=== PATIENT | female | born 1955 | race Two or more races ===

== ENCOUNTER 2020-09-09 16:08 | Inpatient (IN) | payer MEDICARE, OTHER ==
[~2020-09-09] VITALS: Ht 157.5 cm; Wt 59.4 kg
[2020-09-09 16:00] VITALS: BP 153/84
--- NOTE | 2020-09-09 16:30 | NUR ---
PATIENT IS A 64 YEAR OLD FEMALE, BROUGHT IN TO THE HOSPITAL BY AMBULANCE FROM [facility] , ADMITTED ON A 5150 HOLD FOR DANGER TO SELF. UPON FACE TO FACE ASSESSMENT, PATIENT DENIES SI/HI, STATES SHE HAS NO PLAN TO HURT OTHERS OR HERSELF, BECAUSE "THAT ONLY CAUSES PAIN FOR OTHER PEOPLE". PATIENT IS ANXIOUS, RESTLESS, AND FEARFUL DURING ASSESSMENT. PATIENT DURING INTERVIEW LYING DOWN IN BED WITH CONTROLLED MOVEMENT. PATIENT GOES ON TANGENTS DURING INTERVIEW BUT IS ABLE TO BE REDIRECTED AND REFOCUS ON SUBJECT. SPEECH IS NORMAL PACE, WITHOUT PRESSURE. PATIENT STATES SHE HAS HX OF ANXIETY, SEIZURES, DEPRESSION, BIPOLAR, AND SCHIZOPHRENIA. PATIENT STATES SHE DRINKS ON AVERAGE 1 BOTTLE VODKA A DAY AND HALF A PACK OF CIGARETTES A DAY. PT STATES HER LAST DRINK WAS IN JUNE 2020, LAST SMOKE IN JULY 2020. PATIENT APPEARS DISHEVELED. Q15 SAFETY CHECKS IMPLEMENTED. WILL CONTINUE TO MONITOR
[2020-09-09] MEDS ORDERED: LORA10TA7 PO (16:52)
[2020-09-09] MEDS ORDERED: NALT50TA PO (16:52)
[2020-09-09] MEDS ORDERED: ASPI-1169 PO (16:52)
[2020-09-09] MEDS ORDERED: VARE1TAB PO (16:52)
[2020-09-09] MEDS ORDERED: LISI10TA29 PO (16:52)
[2020-09-09] MEDS ORDERED: LEVO25TA7 PO (16:52)
[2020-09-09 17:00] VITALS: BP 153/84
[2020-09-09] MEDS ORDERED: MAG HYDROX/AL HYDROX/SIMETH 30 ML UDC PO PRN (17:00)
[2020-09-09] MEDS ORDERED: BLOOD SUGAR DIAGNOSTIC 1 EACH STRIP IN ONE (17:00)
[2020-09-09] MEDS ORDERED: MAGNESIUM HYDROXIDE 30 ML UDC PO PRN (17:00)
[2020-09-09] MEDS: LORAZEPAM 1 MG TABLET PO PRN (17:12)
--- NOTE | 2020-09-09 17:14 | NUR ---
PATIENT ANXIOUS AND EXPRESSES WISHES TO LEAVE IMMEDIATELY, ATIVAN PO GIVEN DIRECTED, WILL CONTINUE TO MONITOR
[2020-09-09 20:46] VITALS: BP 145/78
[2020-09-10] MEDS: ACETAMINOPHEN 325 MG TABLET PO PRN (06:06)
[2020-09-10 06:30] LABS: CALCIUM, SERUM 9.4 mg/dL (8.5-10.1); CREATININE 0.9 mg/dL (0.6-1.3); TOTAL PROTEIN, SERUM 9.1 g/dL (6.4-8.2)
[2020-09-10 06:41] LABS: CHOLESTEROL 168 mg/dL (<200); HDL CHOLESTEROL 58 mg/dL (40-60); LDL 97 mg/dL (0-99); TRIGLYCERIDES 70 mg/dL (30-150)
[2020-09-10 08:00] VITALS: BP 134/96
[2020-09-10] MEDS: LISINOPRIL (10MG) 10 MG TABLET PO SCH (08:36)
[2020-09-10] MEDS: NICOTINE PATCH (21MG) 21 MG PATCH.TD24 TD SCH (08:36)
[2020-09-10] MEDS: LEVOTHYROXINE SODIUM 50 MCG TABLET PO SCH (08:37)
[2020-09-10] MEDS: ASPIRIN 81 MG TAB.CHEW PO SCH (08:37)
[2020-09-10] MEDS ORDERED: LORATADINE 10 MG TABLET PO PRN (09:00)
--- NOTE | 2020-09-10 09:15 | NUR ---
RN NOTES BP RE-EVALUATED POST LISINOPRIL ADMINISTRATION. BP FROM 160/98 TO 134/96. WILL CONT TO MONITOR CARE
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
[2020-09-10 16:00] VITALS: BP 132/73
[2020-09-10] MEDS: DIVALPROEX SODIUM 250 MG TABLET.DR PO SCH (17:00)
--- NOTE | 2020-09-10 17:30 | NUR ---
RN NOTES NEW MEDICATION: DEPAKOTE 250 MG TAB DUE AT 1700 REFUSED. PT STATING THAT "DOCUMENT WHATEVER YOU WANT, YOU ARE PREVENTING ME TO USE THE PHONE CAUSE I MIGHT STEAL IT. YOU DON'T WANT ME TO TALK TO MY DAUGHTER CAUSE SHE WILL TELL ME THAT I SHOULD TAKE A SHOWER. YOU WANTED TO KEEP ME HERE BECAUSE I STINK", PT STARTED YELLING AND SHOUTING THIS STATEMENT. THOUGH RISK AND BENEFITS EXPLAINED, PT CONTINUE TO REFUSE AND ESCALATING BEHAVIOR. SAFETY ENVIRONMENT PROVIDED. CONT TO MONITOR CARE
[2020-09-10 19:52] VITALS: BP 122/76
[2020-09-10] MEDS: QUETIAPINE FUMARATE 100 MG TABLET PO SCH (21:00)
--- NOTE | 2020-09-10 23:46 | NUR ---
RN NOTE PATEINT REFUSED MEDICATION AND STATED " I DO NO WANT IT. THANK YOU." PATIENT IN ROOM IN STABLE CONDITION. VITALS SIGNS STABLE AND PATIENT ASLEEP AT THIS TIME WILL CONTINUE TO MONITOR AND FOLLOW CARE PLAN ACCORDINGLY.
[2020-09-11 08:00] VITALS: BP 147/79
[2020-09-11] MEDS: LISINOPRIL (10MG) 10 MG TABLET PO SCH ×2 (08:40→08:47)
[2020-09-11] MEDS: LEVOTHYROXINE SODIUM 50 MCG TABLET PO SCH ×2 (08:41→08:47)
[2020-09-11] MEDS: ASPIRIN 81 MG TAB.CHEW PO SCH ×2 (08:41→08:47)
[2020-09-11] MEDS: ACETAMINOPHEN 325 MG TABLET PO PRN (08:41)
[2020-09-11] MEDS: NICOTINE PATCH (21MG) 21 MG PATCH.TD24 TD SCH ×2 (08:41→08:48)
[2020-09-11] MEDS: DIVALPROEX SODIUM 250 MG TABLET.DR PO SCH ×3 (08:41→16:11)
--- NOTE | 2020-09-11 09:06 | NUR ---
Patient requested tylenol but refused once attempted to administer. Nurse educated on benefits of medication. MD visited, requesting she take medication, responded "yes" but refused once nurse returned dumping it in pitcher of juice. MD made aware and revisited with explanation of consequence for not taking medication. Pt states "ok, I'm not taking."
--- NOTE | 2020-09-11 13:19 | NUR ---
Nurse spoke with son during lunch due to her refusing to eat and wanting "vitamins" and informed him she refused morning medication with multiple attempts to give. Will give him a call next medication time if she refuses.
[2020-09-11 16:00] VITALS: BP 133/79
--- NOTE | 2020-09-11 17:33 | NUR ---
Rn Closing Note: Patient accepted 1700 depakote without difficulty and consumed dinner. No aggressive events this shift. Most of day spent in room or ad-yuniel chahal, hyperverbal continues.
[2020-09-11 19:58] VITALS: BP 128/61
[2020-09-11] MEDS: QUETIAPINE FUMARATE 100 MG TABLET PO SCH ×2 (21:35→22:52)
[2020-09-11] MEDS ORDERED: QUETIAPINE FUMARATE 25 MG TABLET ONE (22:48)
--- NOTE | 2020-09-11 22:52 | NUR ---
GPS-RN NOTES: 2134 - PULLED OUT SEROQUEL 150MG PO IN THE OMNICELL SCHEDULED. PATIENT TOOK ONLY SEROQUEL 50MG. EDUCATED PATIENT REGARDING MEDICATION COMPLIANCE TO TAKE THE REMAINING DOSE OF 100MG PO BUT PATIENT STRONGLY REFUSED. WASTED SEROQUEL 100MG PO IN MEDICATION DISPOSAL. 2251 - CALLED PATIENT SON'S VANESA INFORMED HIM THAT PATIENT TOOK ONLY SEROQUEL 50MG PO INSTEAD OF SEROQUEL 150MG PO ORDERED. PATIENT'S SON CONVINCED PT AND PATIENT AGREED TO TAKE MED. CHARGE NURSE DWIGHT PULLED OUT SEROQUEL 25MG (4TABS) SINCE SEROQUEL 100MG IS UNAVAILABLE STOCK. ADMINISTERED SEROQUEL ORDERED. WILL CONTINUE TO MONITOR.
[2020-09-12 08:00] VITALS: BP 103/71
[2020-09-12] MEDS: ASPIRIN 81 MG TAB.CHEW PO SCH (08:13)
[2020-09-12] MEDS: DIVALPROEX SODIUM 250 MG TABLET.DR PO SCH ×2 (08:13→16:02)
[2020-09-12] MEDS: LEVOTHYROXINE SODIUM 50 MCG TABLET PO SCH (08:14)
[2020-09-12] MEDS: LISINOPRIL (10MG) 10 MG TABLET PO SCH (08:15)
[2020-09-12] MEDS: LORAZEPAM 1 MG TABLET PO PRN (08:26)
[2020-09-12] MEDS: NICOTINE PATCH (21MG) 21 MG PATCH.TD24 TD SCH (08:50)
--- NOTE | 2020-09-12 09:48 | NUR ---
Patient aao x2, denies discomforts. Observed pacing halls counting repeatedly and entering others rooms unwanted. Compliant with meds and prn ativan. No aggressive or destructive behaviors noted. Consumed breakfast. Daughter called for update and spoke with patient.
--- NOTE | 2020-09-12 14:40 | NUR ---
Family Contact: CHARAN called the pts son, Ramiro ([phone]), and discussed the pts discharge plan. Pts son stated that he would like the pt to return to his home and that he wanted to be informed about her medications because he is aware that the pt needs to remain compliant on them. CHARAN provided him with the information and then informed him that she will keep him updated on the discharge planning.
--- NOTE | 2020-09-12 15:10 | NUR ---
Initial Discharge Plan: Pt currently resides at her son's home, Ramiro ([phone]), located at [address] [place] [address], [address] [address]. Per pt, she would like to return there and per pts son he would like her home. CHARAN will work with the pt and the MD regarding appropriate discharge planning. SW will form a safe and proper discharge.
[2020-09-12 16:00] VITALS: BP 118/70
[2020-09-12] MEDS: ZOLPIDEM TARTRATE 5 MG TABLET PO PRN (19:58)
[2020-09-12 20:00] VITALS: BP 146/54
[2020-09-13 08:00] VITALS: BP 156/73
[2020-09-13] MEDS: DIVALPROEX SODIUM 250 MG TABLET.DR PO SCH ×2 (08:18→16:45)
[2020-09-13] MEDS: LEVOTHYROXINE SODIUM 50 MCG TABLET PO SCH (08:20)
[2020-09-13] MEDS: NICOTINE PATCH (21MG) 21 MG PATCH.TD24 TD SCH (08:20)
[2020-09-13] MEDS: LISINOPRIL (10MG) 10 MG TABLET PO SCH (08:20)
[2020-09-13] MEDS: ASPIRIN 81 MG TAB.CHEW PO SCH (08:20)
[2020-09-13 16:00] VITALS: BP 142/81
[2020-09-13 21:04] VITALS: BP 139/80
[2020-09-13] MEDS: QUETIAPINE FUMARATE 100 MG TABLET PO SCH (21:17)
[2020-09-14 08:00] VITALS: BP 109/75
[2020-09-14] MEDS: LEVOTHYROXINE SODIUM 50 MCG TABLET PO SCH (08:38)
[2020-09-14] MEDS: LORAZEPAM 1 MG TABLET PO PRN (08:38)
[2020-09-14] MEDS: DIVALPROEX SODIUM 250 MG TABLET.DR PO SCH ×2 (08:38→16:29)
[2020-09-14] MEDS: LISINOPRIL (10MG) 10 MG TABLET PO SCH (08:39)
[2020-09-14] MEDS: ASPIRIN 81 MG TAB.CHEW PO SCH (08:39)
[2020-09-14] MEDS: NICOTINE PATCH (21MG) 21 MG PATCH.TD24 TD SCH (09:01)
[2020-09-14 16:00] VITALS: BP 145/70
[2020-09-14 20:40] VITALS: BP 116/88
[2020-09-14] MEDS: QUETIAPINE FUMARATE 100 MG TABLET PO SCH (21:28)
[2020-09-14] MEDS: ZOLPIDEM TARTRATE 5 MG TABLET PO PRN (22:12)
--- NOTE | 2020-09-14 22:12 | NUR ---
GPS-RN NOTES: INSOMNIA PATIENT C/O UNABLE TO SLEEP. ADMINISTERED AMBIEN 5MG PO ORDERED. WILL CONTINUE TO MONITOR.
[2020-09-15 08:00] VITALS: BP 142/81
[2020-09-15] MEDS: ASPIRIN 81 MG TAB.CHEW PO SCH (08:16)
[2020-09-15] MEDS: NICOTINE PATCH (21MG) 21 MG PATCH.TD24 TD SCH (08:16)
[2020-09-15] MEDS: DIVALPROEX SODIUM 250 MG TABLET.DR PO SCH ×2 (08:17→16:42)
[2020-09-15] MEDS: LEVOTHYROXINE SODIUM 50 MCG TABLET PO SCH (08:17)
[2020-09-15] MEDS: LISINOPRIL (10MG) 10 MG TABLET PO SCH (08:17)
--- NOTE | 2020-09-15 09:00 | NUR ---
RN NOTE- PT FLAT AND HYPERVERBAL, PACING IN HALLS MUMBLING AND SINGING TO SELF ,INTRUSIVE AND OCCASIONALLY INAPPROPRIATE, DENIES ALL MED COMPLIANT
--- NOTE | 2020-09-15 12:35 | NUR ---
Probable Cause Hearing: Pts 5250 hold was upheld for grave disability.
[2020-09-15 16:00] VITALS: BP 131/76
[2020-09-15 20:31] VITALS: BP 137/86
[2020-09-15] MEDS: QUETIAPINE FUMARATE 100 MG TABLET PO SCH (21:04)
--- NOTE | 2020-09-16 07:00 | NUR ---
RN NOTES: PATIENT RESTING IN ROOM. NO S/S OF DISTRESS. NO CHANGE OF CONDITION NOTED, SAFETY PRECAUTION MAINTAINED, ALL PATIENT CARE NEEDS MET AT THIS TIME. WILL CONTINUE TO MONITOR PATIENT FOR MOOD, BEHAVIOR AND SAFETY AND ENDORSE TO AM SHIFT FOR CONTINUITY CARE.
[2020-09-16 08:00] VITALS: BP 163/81
[2020-09-16] MEDS: ASPIRIN 81 MG TAB.CHEW PO SCH (08:51)
[2020-09-16] MEDS: LISINOPRIL (10MG) 10 MG TABLET PO SCH (08:52)
[2020-09-16] MEDS: DIVALPROEX SODIUM 250 MG TABLET.DR PO SCH ×2 (08:53→16:29)
[2020-09-16] MEDS: LEVOTHYROXINE SODIUM 50 MCG TABLET PO SCH (08:53)
[2020-09-16] MEDS: LORAZEPAM 1 MG TABLET PO PRN ×2 (08:53→18:12)
[2020-09-16] MEDS: NICOTINE PATCH (21MG) 21 MG PATCH.TD24 TD SCH (09:04)
[2020-09-16 16:00] VITALS: BP 154/78
[2020-09-16 20:08] VITALS: BP 139/78
[2020-09-16 20:17] VITALS: BP 139/78
[2020-09-16] MEDS: QUETIAPINE FUMARATE 100 MG TABLET PO SCH (21:20)
[2020-09-17 08:00] VITALS: BP 113/47
[2020-09-17] MEDS: NICOTINE PATCH (21MG) 21 MG PATCH.TD24 TD SCH (08:32)
[2020-09-17] MEDS: DIVALPROEX SODIUM 250 MG TABLET.DR PO SCH ×2 (08:33→17:08)
[2020-09-17] MEDS: ASPIRIN 81 MG TAB.CHEW PO SCH (08:33)
[2020-09-17] MEDS: LEVOTHYROXINE SODIUM 50 MCG TABLET PO SCH (08:33)
[2020-09-17] MEDS: LORAZEPAM 1 MG TABLET PO PRN ×2 (08:33→17:08)
[2020-09-17] MEDS: LISINOPRIL (10MG) 10 MG TABLET PO SCH (08:37)
[2020-09-17 13:02] VITALS: BP 113/47
[2020-09-17 16:00] VITALS: BP 112/69
[2020-09-17 20:47] VITALS: BP 126/69
[2020-09-17] MEDS: QUETIAPINE FUMARATE 100 MG TABLET PO SCH (21:08)
[2020-09-17] MEDS: ZOLPIDEM TARTRATE 5 MG TABLET PO PRN (22:32)
[2020-09-18] MEDS: LORAZEPAM 1 MG TABLET PO PRN ×2 (07:40→14:45)
[2020-09-18 08:00] VITALS: BP 102/48
[2020-09-18] MEDS: DIVALPROEX SODIUM 250 MG TABLET.DR PO SCH ×2 (08:11→16:08)
[2020-09-18] MEDS: ASPIRIN 81 MG TAB.CHEW PO SCH (08:11)
[2020-09-18] MEDS: LEVOTHYROXINE SODIUM 50 MCG TABLET PO SCH (08:11)
[2020-09-18] MEDS: NICOTINE PATCH (21MG) 21 MG PATCH.TD24 TD SCH (08:13)
[2020-09-18] MEDS: LISINOPRIL (10MG) 10 MG TABLET PO SCH (08:57)
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
[2020-09-18 16:00] VITALS: BP 123/69
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
[2020-09-18 20:06] VITALS: BP 108/73
[2020-09-18] MEDS: QUETIAPINE FUMARATE 100 MG TABLET PO SCH (21:30)
[2020-09-19 08:00] VITALS: BP 107/73
[2020-09-19] MEDS: NICOTINE PATCH (21MG) 21 MG PATCH.TD24 TD SCH (08:33)
[2020-09-19] MEDS: ASPIRIN 81 MG TAB.CHEW PO SCH (08:33)
[2020-09-19] MEDS: LORAZEPAM 1 MG TABLET PO PRN ×2 (08:33→15:26)
[2020-09-19] MEDS: DIVALPROEX SODIUM 250 MG TABLET.DR PO SCH ×2 (08:33→16:07)
[2020-09-19] MEDS: LEVOTHYROXINE SODIUM 50 MCG TABLET PO SCH (08:33)
[2020-09-19] MEDS: LISINOPRIL (10MG) 10 MG TABLET PO SCH (08:34)
[2020-09-19 16:00] VITALS: BP 143/85
[2020-09-19 19:50] VITALS: BP 106/49
[2020-09-19 19:59] VITALS: BP 106/49
[2020-09-19 20:55] VITALS: BP 107/65
[2020-09-19] MEDS: QUETIAPINE FUMARATE 100 MG TABLET PO SCH (21:43)
--- NOTE | 2020-09-20 06:47 | NUR ---
RN NOTE: REFUSED AM LABS PATIENT REFUSED AM LABS BLOOD DRAW THIS MORNING DESPITE OF RISKS & BENEFITS EXPLANATIONS.
[2020-09-20 08:00] VITALS: BP 122/75
[2020-09-20] MEDS: LORAZEPAM 1 MG TABLET PO PRN ×2 (08:02→14:05)
[2020-09-20] MEDS: LEVOTHYROXINE SODIUM 50 MCG TABLET PO SCH (08:02)
[2020-09-20] MEDS: LISINOPRIL (10MG) 10 MG TABLET PO SCH (08:03)
[2020-09-20] MEDS: DIVALPROEX SODIUM 250 MG TABLET.DR PO SCH ×2 (08:03→17:13)
[2020-09-20] MEDS: ASPIRIN 81 MG TAB.CHEW PO SCH (08:18)
[2020-09-20] MEDS: NICOTINE PATCH (21MG) 21 MG PATCH.TD24 TD SCH (08:19)
--- NOTE | 2020-09-20 14:10 | NUR ---
Individual Intervention: SW met with the pt at bedside with the MD Dr. Duncan to discuss the pts discharge plan. Pt stated that she wanted to be discharged as soon as possible. Pt stated that her son will take care of her and she feels ready to go.
--- NOTE | 2020-09-20 14:17 | NUR ---
Family Contact: SW called the pts son, Ramiro ([phone]), and informed him that the pt has shown great improvement and that the MD is putting a discharge order for the following day. Pts son spoke to the pt and then called the SW back and stated that he agrees that the pt has improved. Pts son stated that he would arrive around 1pm to brass pickler the pt.
[2020-09-20 15:56] LABS: BASOPHILS % (AUTO) 1.2 % (0.0-2.0); EOSINOPHILS % (AUTO) 0.3 % (0.0-6.0); HEMATOCRIT 27 % (33-45); HEMOGLOBIN 9.1 g/dL (11.5-14.8); LYMPHOCYTES # (AUTO) 1.3 /CMM (0.8-4.8); LYMPHOCYTES % (AUTO) 31.8 % (20.0-44.0); MEAN CORPUSCULAR HGB CONC 34 g/dl (31.0-36.0); MEAN CORPUSCULAR VOLUME 97 fL (82-100); MONOCYTES # (AUTO) 0.4 /CMM (0.1-1.30); MONOCYTES % (AUTO) 10.6 % (2.0-12.0); NEUTROPHILS # (AUTO) 2.3 /CMM (1.8-8.9); NEUTROPHILS % (AUTO) 56.1 % (43.0-81.0); PLATELET COUNT (AUTO) 209 /CMM (150-450); WHITE BLOOD COUNT (AUTO) 4.1 K/uL (4.3-11.0)
[2020-09-20 16:00] VITALS: BP 126/58
[2020-09-20 16:19] LABS: CALCIUM, SERUM 8.4 mg/dL (8.5-10.1); CREATININE 0.9 mg/dL (0.6-1.3)
[2020-09-20 16:34] LABS: THYROID STIMULATING HORMONE 11.112 uIU/mL (0.358-3.74)
[2020-09-20 20:10] VITALS: BP 111/57
[2020-09-20] MEDS: QUETIAPINE FUMARATE 100 MG TABLET PO SCH (21:18)
[2020-09-21 08:00] VITALS: BP 133/78
[2020-09-21] MEDS: ASPIRIN 81 MG TAB.CHEW PO SCH (08:16)
[2020-09-21] MEDS: NICOTINE PATCH (21MG) 21 MG PATCH.TD24 TD SCH (08:16)
[2020-09-21 08:17] VITALS: BP 133/78
[2020-09-21] MEDS: LEVOTHYROXINE SODIUM 50 MCG TABLET PO SCH (08:17)
[2020-09-21] MEDS: LISINOPRIL (10MG) 10 MG TABLET PO SCH (08:17)
[2020-09-21] MEDS: DIVALPROEX SODIUM 250 MG TABLET.DR PO SCH (08:17)
--- NOTE | 2020-09-21 10:15 | NUR ---
Dr. Duncan gave an order to D/C hold and D/C to son's home and to follow up with psych and medical doctors. Pt. without distress, denies suicidal and homicidal. Belongings ready and discharge papers ready. Addendum: 09/21/20 at 1245 by IRAIS OLIVAREZ RN Pt. signed some of the discharge papers and refused some of it.
--- NOTE | 2020-09-21 11:27 | NUR ---
Discharge Note: Pt will be discharged to her sons home located at [address] [facility] [address], [address], [place] [address]. Pts son, Ramiro ([phone]), will come and orange picking supervisor the pt around 1pm. Upon discharge, the pt presents with a calm affect and appears to be mood congruent. Pt denies both suicidal and homicidal ideation as well as auditory and visual hallucinations. Pt appears to be alert and oriented x4. Pt appears to be ambulatory with an unsteady gait. Pt appears to be disheveled yet appropriately dressed. Pt will continue to be under the care of psychiatrist, Dr. Villasenor, located a [address] [facility] [address], [place] [address]; . Pt will also be under the care of his varnish maker, Dr. Kwabena Hyatt, located at [address] [place] [address]; ([facility]). The multidisciplinary exit care form was done, printed, signed, and given to the patient.
--- NOTE | 2020-09-21 13:09 | NUR ---
( [facility]) Magnus Banda made aware of the discharge and provided a prescriptions.
--- NOTE | 2020-09-21 14:40 | NUR ---
Pt. left the unit via a wheelchair and wheeled by staff to the lobby with belongings and valuables. Pt. left the unit without distress and on stable condition. Pt. is being picked up by son Ramiro Bro. Pt. and son was instructed on meds to continue at home and to make a follow up with psych and medical doctors. V/S taken: BP 121/80, KS 97, RR 18, temp. 97.4 and oxygen sat 98%.
== END 2020-09-21 14:48 | disposition home or self-care (01) | DRG 885 ==
LOC: GPS 16:08
PROVIDERS: ADMIT Psychiatry & Neurology Psychiatry; ATTEND Nurse Practitioner Acute Care
DX: F31.2 Bipolar disorder, current episode manic severe with psychotic features (principal); E03.9 Hypothyroidism, unspecified; I25.10 Atherosclerotic heart disease of native coronary artery without angina pectoris; I10 Essential (primary) hypertension; F29 Unspecified psychosis not due to a substance or known physiological condition; Z88.0 Allergy status to penicillin; Z73.6 Limitation of activities due to disability; F17.210 Nicotine dependence, cigarettes, uncomplicated; F10.20 Alcohol dependence, uncomplicated; F19.10 Other psychoactive substance abuse, uncomplicated; Z59.0 Homelessness; R79.89 Other specified abnormal findings of blood chemistry
CPT/HCPCS: 36415; 80048-TC; 80053-TC; 80061-TC; 80164-TC; 82962-TC; 84443-TC; 85025-TC; 87081-TC